=== PATIENT | female | born 1995 | race African-American/Black ===

== ENCOUNTER 2022-03-16 18:37 | Emergency (ER) | payer OTHER, SELFPAY | END 2022-03-16 20:07 | disposition home or self-care (01) | LOC: ERS 18:37 | DX: S09.90XA Unspecified injury of head, initial encounter (principal); S39.012A Strain of muscle, fascia and tendon of lower back, initial encounter; V89.2XXA Person injured in unspecified motor-vehicle accident, traffic, initial encounter | CPT/HCPCS: 70450 ==